=== PATIENT | female | born 1940 | race Caucasian/White ===

== ENCOUNTER → 2017-02-22 | Outpatient (CLI) | payer OTHER ==
[~2017-02-22] MED LIST: LIDOCAINE 1% 30 ML SDV ONE; NA BICARBONATE 50 MEQ/50 ML VIAL ONE; SODIUM BICARBONATE 10 MEQ/10 ML SYR IVP ONE
== END ==
LOC: FIMAGING 11:58
PROVIDERS: ATTEND Internal Medicine Infectious Disease
PROC: 0GBH3ZX Excision of Right Thyroid Gland Lobe, Percutaneous Approach, Diagnostic (ICD-10-PCS; principal; 2017-02-22)
DX: E04.9 Nontoxic goiter, unspecified (principal)